=== PATIENT | male | born 1980 | race Caucasian/White ===

== ENCOUNTER 2023-03-10 16:25 | Emergency (ER) | payer OTHER, SELFPAY ==
[2023-03-10 16:37] VITALS: BP 199/159; PULSE 90; RESP 18; TEMP 36.8; O2SAT 98; BMI 34.0
[2023-03-10 16:54] VITALS: BP 165/110
[2023-03-10 17:05] LABS: Basophils Absolute Auto 0.1 10^3/uL (0.0-0.1); Basophils Percent Auto 0.9 % (0.2-2.0); Eosinophils Absolute Auto 0.2 10^3/uL (0.0-0.7); Eosinophils Percent Auto 2.1 % (0.9-7.0); Hematocrit 43.4 % (42.0-54.0); Hemoglobin 13.3 g/dL (14.0-18.0); Immature Granulocytes Abs Auto 0.07 10^3/uL (0.00-0.03); Immature Granulocytes Pct Auto 0.8 % (0.0-0.5); Lymphocytes Absolute Auto 2.3 10^3/uL (1.2-3.8); Lymphocytes Percent Auto 25.3 % (20.5-60.0); Mean Corpuscular HGB Conc 30.6 g/dL (29.9-35.2); Mean Corpuscular Hemoglobin 19.8 pg (25.9-34.0); Mean Corpuscular Volume 64.6 fL (80.0-94.0); Mean Platelet Volume 9.3 fL (9.5-13.5); Monocytes Absolute Auto 0.8 10^3/uL (0.3-0.8); Monocytes Percent Auto 9.1 % (1.7-12.0); Neutrophils Absolute Auto 5.6 10^3/uL (1.4-6.5); Neutrophils Percent Auto 61.8 % (43.0-75.0); Platelet Count 318 10^3/uL (150-450); Red Blood Count 6.72 10^6/uL (4.70-6.10); Red Cell Distribution Width 17.6 % (11.0-15.0)
[2023-03-10 17:20] LABS: Anion Gap 12.7; BUN Creatinine Ratio 12.1; Calcium 9.1 mg/dL (8.5-10.1); Carbon Dioxide 27.3 mmol/L (21.0-32.0); Chloride 100 mmol/L (98-107); Estimated GFR (African America >60 (>=60); Estimated GFR (Non-African Ame >60 (>=60); Glucose 106 mg/dL (74-106); Sodium 136 mmol/L (136-145)
[2023-03-10 17:21] LABS: Alanine Aminotransferase 69 U/L (16-63); Alkaline Phosphatase 73 U/L (46-116); Aspartate Amino Transferase 31 U/L (15-37); Bilirubin Total 1.1 mg/dL (0.2-1.0); Globulin 4.1 g/dL; Total Protein 8.1 g/dL (6.4-8.2)
[2023-03-10 17:23] LABS: Lactate/Lactic Acid 1.3 mmol/L (0.4-2.0)
--- NOTE | 2023-03-10 17:35 | ED_ITS ---
HPI - General Adult General Chief complaint: Abdominal Pain Stated complaint: Abdominal Pain Time Seen by Provider: 03/10/23 16:43 Source: patient Mode of arrival: walk-in Limitations: no limitations History of Present Illness HPI narrative: Patient is a 42-year-old male who is presenting to the Emergency Room with chief complaint of intermittent right sharp stabbing abdominal pain that last for a few seconds and is been ongoing since yesterday. Patient is at bedside. Patient says that when he bends over to tie his shoes, or piece twisting and turning in bed he will notice his short few 2nd sharp stabbing pain between his right lower and right upper quadrant. Patient says he has had no constipation. He's had no right lower back pain with radiation to right flank or right lower abdomen. No rash. No diarrhea. No nausea or vomiting. Pain only lasts for a few seconds. Patient works at [employer]. Patient is constantly doing lifting, twisting and turning. was concerned about appendicitis. Patient's had no fever, anorexia, no nausea vomiting, no persistence of pain. No other acute complaints. . All systems are negative except as noted/marked. All systems reviewed and otherwise negative. . Nurses note and vital signs reviewed and patient is not hypoxic. General: The patient appears well and in no apparent distress. Patient is resting comfortably on cart. Patient is not toxic, lethargic, or listless Skin: Warm, dry, no pallor noted. There is no rash noted. No petechiae, purpura. Head: Normocephalic, atraumatic Eye: Normal conjunctiva, no drainage, EOMI. PERRL Ears, Nose, Mouth, and Throat: oral mucosa is moist. Cardiovascular: Regular Rate and Rhythm, no murmur, gallop, rub Respiratory: Patient is in no distress, no accessory muscle use, lungs are clear to auscultation, no wheezing, rales or rhonchi Back: non-tender, no CVA tenderness bilaterally to percussion. No CT LS midline pain GI: soft, Obese, no peritoneal signs, no flank pain bilateral,no tenderness to palpation, no masses appreciated. No rebound, guarding, or rigidity noted. No flank pain bilateral, No distention Musculoskeletal: Patient has full range of motion of all of the extremities, no motor, sensory, or focal neurological deficits. Patient was stood up. With patient bending, side bending, twisting, turning, flexing and extending his right hip, internal/extternal rotation of right erasto, I cannot reproduce any of patient's pain. He does not have any the pain in the Emergency Room during physical exam. Neurological: A&O x3, normal speech Psychiatric: Cooperative Related Data Allergies Allergy/AdvReac Type Severity Reaction Status Date / Time No Known Drug Allergies Allergy Verified 03/10/23 16:37 PFSH PFSH Social History Smoking status: Never smoker Exam Constitutional Vital Signs, click to edit/add: Last Vital Signs Temp 98.2 F 03/10/23 16:37 Pulse 90 03/10/23 16:37 Resp 18 03/10/23 16:37 BP 165/110 H 03/10/23 16:54 Pulse Ox 98 03/10/23 16:37 Course Vital Signs Vital signs: Vital Signs Temperature 98.2 F 03/10/23 16:37 Pulse Rate 90 03/10/23 16:37 Respiratory Rate 18 03/10/23 16:37 Blood Pressure 199/159 H 03/10/23 16:37 Pulse Oximetry 98 03/10/23 16:37 Temperature 98.2 F 03/10/23 16:37 Pulse Rate 90 03/10/23 16:37 Respiratory Rate 18 03/10/23 16:37 Blood Pressure 165/110 H 03/10/23 16:54 Pulse Oximetry 98 03/10/23 16:37 Medical Decision Making [facility] Narrative Medical decision making narrative: 10 minutes was spent at bedside educating patient And his on kidney stones, appendicitis, gastrointestinal upset, constipation, gas, rash, shingles, or any other possible differential diagnosis. Indication abdominal wall pain and groin strain/pain was discussed as well. I cannot reproduce any pain during physical exam. Patient states his pain only lasts for a few seconds with any type of range of motion of his right lower abdominal wall yesterday and today but is not occurring at this time. No indication for lab testing or imaging at this time, patient agrees. Patient will follow-up with PCP. Reasons of why to return to the Emergency Room were discussed the patient and his . Patient feels comfortable with no testing and going home. I believe IV and lab work were initially ordered secondary to abdominal protocolAnd also secondary to the volume in the Emergency Room today. No imaging ordered. Lab Data Labs: Lab Results 03/10/23 Range/Units 16:52 WBC 9.0 (4.0-11.0) 10^3/uL RBC 6.72 H (4.70-6.10) 10^6/uL Hgb 13.3 L (14.0-18.0) g/dL Hct 43.4 (42.0-54.0) % MCV 64.6 L (80.0-94.0) fL MCH 19.8 L (25.9-34.0) pg MCHC 30.6 (29.9-35.2) g/dL RDW 17.6 H (11.0-15.0) % Plt Count 318 (150-450) 10^3/uL MPV 9.3 L (9.5-13.5) fL Neut % (Auto) 61.8 (43.0-75.0) % Lymph % (Auto) 25.3 (20.5-60.0) % Frederick % (Auto) 9.1 (1.7-12.0) % Eos % (Auto) 2.1 (0.9-7.0) % Baso % (Auto) 0.9 (0.2-2.0) % Neut # (Auto) 5.6 (1.4-6.5) 10^3/uL Lymph # (Auto) 2.3 (1.2-3.8) 10^3/uL Frederick # (Auto) 0.8 (0.3-0.8) 10^3/uL Eos # (Auto) 0.2 (0.0-0.7) 10^3/uL Baso # (Auto) 0.1 (0.0-0.1) 10^3/uL Abs Immat Gran (auto) 0.07 H (0.00-0.03) 10^3/uL Imm/Tot Granulo (auto) 0.8 H (0.0-0.5) % Sodium 136 (136-145) mmol/L Potassium 4.0 (3.5-5.1) mmol/L Chloride 100 (98-107) mmol/L Carbon Dioxide 27.3 (21.0-32.0) mmol/L Anion Gap 12.7 BUN 11.0 (7.0-18.0) mg/dL Creatinine 0.91 (0.70-1.30) mg/dL Est GFR ( Amer) >60 (>=60) Est GFR (Non-Af Amer) >60 (>=60) BUN/Creatinine Ratio 12.1 Glucose 106 (74-106) mg/dL Lactate 1.3 (0.4-2.0) mmol/L Calcium 9.1 (8.5-10.1) mg/dL Total Bilirubin 1.1 H (0.2-1.0) mg/dL AST 31 (15-37) U/L ALT 69 H (16-63) U/L Alkaline Phosphatase 73 (46-116) U/L Total Protein 8.1 (6.4-8.2) g/dL Albumin 4.0 (3.4-5.0) g/dL Globulin 4.1 g/dL Albumin/Globulin Ratio 1.0 Lipase 27.0 (16.0-77.0) U/L Discharge Plan Discharge Chief Complaint: Abdominal Pain Clinical Impression: Abdominal pain Patient Disposition: Home, Self-Care Condition: Fair Mode of Transportation: Private Vehicle Instructions: Kidney Stones (ED), Abdominal Pain (ED), Musculoskeletal Pain (ED) Additional Instructions: Education on appendicitis, kidney stone, and muscle pain was given to for educational purposes only. If pain becomes more constant, intractable nausea and vomiting, fever, or any other acute concerns return to the Emergency Room. Follow-up with PCP for any additional testing as needed. Stand Alone Forms: Work/School Release, Portal Instructions Referrals: ANY STRATTON [Primary Care Provider] - 1 week Discharge Date/Time: 03/10/23 17:30
== END 2023-03-10 17:30 | disposition home or self-care (01) ==
LOC: ER 17:28
PROVIDERS: Physician Assistant; Emergency Provider Emergency Medicine; PCP Family Medicine
DX: R10.9 Unspecified abdominal pain (principal)
CPT/HCPCS: 36415; 80053; 83605; 83690; 85025; 99284